=== PATIENT | male | born 1990 | race Caucasian/White ===

== ENCOUNTER 2017-12-16 13:42 | Emergency (ER) | payer MEDICAID | END 2017-12-16 20:06 | disposition home or self-care (01) | LOC: D.ER 13:42 | DX: S00.93XA Contusion of unspecified part of head, initial encounter (principal); V49.9XXA Car occupant (driver) (passenger) injured in unspecified traffic accident, initial encounter; Y93.89 Activity, other specified; Y92.410 Unspecified street and highway as the place of occurrence of the external cause; S60.212A Contusion of left wrist, initial encounter ==

== ENCOUNTER 2020-01-31 16:36 | Emergency (ER) | payer MEDICAID ==
[~2020-01-31] VITALS: Ht 154.9 cm; Wt 51.4 kg
[2020-01-31 16:44] VITALS: BP 147/101; Ht 154.9 cm; Wt 51.4 kg
[2020-01-31] MEDS ORDERED: [UNRECOGNIZED DRUG - REMARK] (16:45)
[2020-01-31] MEDS ORDERED: BP MED (16:46)
[2020-01-31] MEDS ORDERED: SODIUM BICARBONATE (16:46)
[2020-01-31] MEDS ORDERED: STRATTERA10 MG (16:46)
[2020-01-31] MEDS ORDERED: MYSOLINE 50 MG50 MG (16:46)
[2020-01-31] MEDS ORDERED: [UNRECOGNIZED DRUG - OTHER] (16:46)
[2020-01-31] MEDS ORDERED: OMEPRAZOLE20 M1 (16:47)
[2020-01-31] MEDS ORDERED: MAG-OXIDE400 MG (16:47)
[2020-01-31 17:23] LABS: BASOPHILS 0.1 % (0-2); EOSINOPHILS 0.3 % (0-7); HEMATOCRIT 43.9 % (42.0-54.0); HEMOGLOBIN 14.9 g/dL (13.5-17.5); IMMATURE GRANULOCYTES 0.3 % (0-5); MCH 30.7 pg (26.0-34.0); MCHC 33.9 g/dL (31.0-37.0); MCV 90.3 fL (80.0-100.0); MEAN PLATELET VOLUME 9.7 fL (7.4-10.4); MONOCYTES 8.6 % (2-11); NEUTROPHILS 74.7 % (40-80); PLATELET COUNT 288 10x3/uL (130-400); RBC 4.86 10x6/uL (4.20-6.10); RDW 13.2 % (11.5-14.5); WBC 11.1 10x3/uL (4.8-10.8)
[2020-01-31 17:36] LABS: ANION GAP 13.8 mmol/L (8-16); CALCIUM 9.9 mg/dL (8.5-10.1); CREATININE - SERUM 1.3 mg/dL (0.6-1.3); POTASSIUM - SERUM 4.8 mmol/L (3.5-5.1)
[2020-01-31 17:41] LABS: ALBUMIN 4.5 g/dL (3.4-5.0); BILIRUBIN - TOTAL 0.31 mg/dL (0.2-1.3); PROTEIN - SERUM 8.4 g/dL (6.4-8.2)
[2020-01-31 17:48] LABS: INR 0.97 (0.85-1.17); PROTIME 12.9 SECONDS (11.6-15.0)
[2020-01-31] MEDS ORDERED: KEFLEX500 MG PO (18:00)
== END 2020-01-31 18:06 | disposition home or self-care (01) ==
LOC: D.ER 16:36
PROVIDERS: Family Medicine
DX: T19.0XXA Foreign body in urethra, initial encounter (principal); X58.XXXA Exposure to other specified factors, initial encounter; I10 Essential (primary) hypertension

== ENCOUNTER 2020-03-07 21:55 | Emergency (ER) | payer MEDICARE ==
[~2020-03-07] VITALS: Ht 154.9 cm; Wt 52.4 kg
[~2020-03-07 21:55] MED LIST: BP MED; KEFLEX500 MG PO; MAG-OXIDE400 MG; MYSOLINE 50 MG50 MG; OMEPRAZOLE20 M1; SODIUM BICARBONATE; STRATTERA10 MG; [UNRECOGNIZED DRUG - OTHER]; [UNRECOGNIZED DRUG - REMARK]
[2020-03-07 22:04] VITALS: Ht 154.9 cm; Wt 52.4 kg
[2020-03-07] MEDS ORDERED: SENSIPAR30 MG PO (22:09)
[2020-03-07] MEDS ORDERED: SODIUM BICARBO325 MG PO (22:10)
[2020-03-07] MEDS ORDERED: LISINOPRIL5 MG PO (22:11)
[2020-03-07] MEDS ORDERED: ALBUTEROL2.5 MG/3 M INH (23:07)
[2020-03-07 23:17] VITALS: BP 128/80
== END 2020-03-07 23:17 | disposition home or self-care (01) ==
LOC: D.ER 21:55
DX: J30.2 Other seasonal allergic rhinitis (principal); R06.02 Shortness of breath; E07.9 Disorder of thyroid, unspecified; I10 Essential (primary) hypertension